=== PATIENT | female | born 1995 | race Two or more races ===

== ENCOUNTER 2025-06-21 18:42 | Emergency (ER) | payer OTHER ==
[~2025-06-21] VITALS: Ht 162.6 cm; Wt 58.1 kg
[2025-06-21] MEDS ORDERED: MAG HYDROX/AL HYDROX/SIMETH 30 ML UDC ONE (19:16)
[2025-06-21] MEDS ORDERED: FAMOTIDINE (20 MG) 20 MG TABLET ONE (19:16)
[2025-06-21] MEDS ORDERED: ONDANSETRON 4 MG TAB.RAPDIS ONE (19:17)
[2025-06-21] MEDS: ONDANSETRON 4 MG TAB.RAPDIS SL ONE (19:21)
[2025-06-21] MEDS: FAMOTIDINE (20 MG) 20 MG TABLET PO ONE (19:21)
[2025-06-21] MEDS: MAG HYDROX/AL HYDROX/SIMETH 30 ML UDC PO ONE (19:21)
[2025-06-21 19:32] LABS: PLATELET COUNT (AUTO) 294 K/uL (150-450); RED BLOOD CELL COUNT(AUTO) 4.15 MIL/uL (4.0-5.2); RED CELL DISTRIBUTION WIDTH 12.2 % (11.5-15.0); WHITE BLOOD COUNT (AUTO) 6.6 K/uL (4.3-11.0)
[2025-06-21 19:35] LABS: APPEARANCE,URINE CLEAR (CLEAR); BLOOD, URINE Trace-lysed Ery/uL (NEGATIVE); LEUKOCYTE ESTERASE ,URINE Negative (NEGATIVE); UGLUCOSE Negative (NEGATIVE)
[2025-06-21 19:36] LABS: ADD URINE CULTURE NO; NITRITE, URINE NEGATIVE (NEGATIVE); PREGNANCY TEST URINE QUAL NEGATIVE (NEGATIVE); SQUAMOUS EPITHELIAL CELL,UR Few /HPF (None Seen)
[2025-06-21 19:39] LABS: CALCIUM, SERUM 9.3 mg/dL (8.5-10.1); CREATININE 0.8 mg/dL (0.6-1.3); SODIUM SERUM 138.0 mmol/L (136-145); UREA NITROGEN, BLOOD 7.0 mg/dL (7-18)
[2025-06-21] MEDS ORDERED: MAG-55 PO (19:40)
[2025-06-21] MEDS ORDERED: FAMO-131 PO (19:40)
[2025-06-21] MEDS ORDERED: FLUT16SP16 BNOSTRILS (19:40)
[2025-06-21] MEDS ORDERED: ONDA4TAB5 PO (19:40)
[2025-06-21] MEDS ORDERED: LOPE2CAP40 PO (19:40)
[2025-06-21 19:45] LABS: ASPARTATE AMINOTRANSFERASE 12.0 U/L (15-37); TOTAL PROTEIN, SERUM 7.4 g/dL (6.4-8.2)
[2025-06-21 20:43] VITALS: BP 115/74; TEMP 98.1; O2SAT 98
== END 2025-06-21 20:44 | disposition home or self-care (01) ==
LOC: ER 18:49
DX: R19.7 Diarrhea, unspecified (principal); R10.13 Epigastric pain; R09.81 Nasal congestion; R11.0 Nausea; F17.200 Nicotine dependence, unspecified, uncomplicated
CPT/HCPCS: 99284; 85025; 80048; 83690; 80076; 84703; 81001; 36415; Q0162